=== PATIENT | female | born 1970 | race Two or more races ===

== ENCOUNTER → 2016-07-02 | Outpatient (CLI) | payer BC | END | disposition home or self-care (01) | LOC: LAB 13:56 | PROVIDERS: ATTEND Obstetrics & Gynecology | DX: N92.6 Irregular menstruation, unspecified (principal) | CPT/HCPCS: 86304 ==

== ENCOUNTER 2017-01-15 08:24 | Inpatient (IN) | payer BC ==
[~2017-01-15] VITALS: Ht 190.5 cm; Wt 129.5 kg
[2017-01-15] MEDS ORDERED: cloNIDine HCL 0.1 MG TAB PO ONE (09:15)
[2017-01-15 10:00] LABS: Basophils # (auto) 0.1 uL; Basophils % (auto) 0.9 % (0.0-2.0); Eosinophils # (auto) 0.1 uL; Eosinophils % (auto) 1.2 % (0.0-7.0); Hematocrit 31.1 % (36.0-46.0); Hemoglobin 9.4 g/dL (12.2-16.2); Lymphocytes # (auto) 2.9 uL; Lymphocytes % (auto) 35.2 % (10.0-50.0); Mean Corpuscular Hemoglobin 20.7 pg (28.0-32.0); Mean Corpuscular Hgb Conc. 30.4 g/dL (32.0-36.0); Mean Corpuscular Volume 68.2 fL (80.0-100.0); Mean Platelet Volume 8.6 fL (6.9-10.8); Monocytes # (auto) 0.7 uL; Monocytes % (auto) 7.8 % (0.0-12.0); Neutrophils # (auto) 4.6 uL; Neutrophils % (auto) 54.9 % (37.0-80.0); Nucleated Red Blood Cells % 0.1 %; Platelet Count (auto) 296 10^3/uL (140-450); White Blood Cell 8.4 10^3/uL (4.4-10.8)
[2017-01-15 10:05] LABS: Albumin 3.4 g/dL (3.4-5.0); BUN/Creatinine Ratio 12.2; Bilirubin, Total 0.5 mg/dL (0.2-1.0); Calcium 8.4 mg/dL (8.5-10.1); Magnesium 2.2 mg/dL (1.6-2.6); Potassium 3.9 mmol/L (3.5-5.1); Total Protein 7.7 g/dL (6.4-8.2)
[2017-01-15] MEDS ORDERED: LORazepam 0.5 MG TAB PO PRN (11:00)
[2017-01-15] MEDS ORDERED: PROMETHAZINE HCL 25 MG/ML 1ML IV PRN (11:00)
[2017-01-15] MEDS ORDERED: MORPHINE SULF INJ 2 MG/ML SYRINGE 1ML IV PRN ×2 (11:00)
[2017-01-15] MEDS ORDERED: ACETAMINOPHEN 500 MG TAB PO PRN (11:00)
[2017-01-15] MEDS ORDERED: ASPirin 81 mg TAB PO ONE (11:00)
[2017-01-15] MEDS ORDERED: HYDROcodone-ACET 5/325MG TAB PO PRN (11:00)
[2017-01-15] MEDS ORDERED: TEMAZEPAM 15 MG CAP PO PRN (11:00)
[2017-01-15] MEDS ORDERED: LACTULOSE 20Gm/30ML SOLN PO PRN (11:00)
[2017-01-15] MEDS ORDERED: NITROGLYCERIN 0.4 MG SL TAB SL PRN (11:00)
[2017-01-15] MEDS: ENALAPRIL MALEATE 10 MG TAB PO SCH (11:15)
[2017-01-15] MEDS: ENOXAPARIN SOD 40 MG/0.4 ML SYRINGE SC SCH (11:15)
[2017-01-15] MEDS: NITROGLYCERIN 0.2MG/HR TOPICAL PATCH TD SCH (11:30)
[2017-01-15] MEDS: METOPROLOL TARTRATE 25 MG TAB PO SCH ×2 (11:30→22:00)
[2017-01-15] MEDS: SODIUM CHLORIDE 0.9% 1,000 ML IV SCH (11:30)
[2017-01-15 11:31] LABS: INR 0.94 (0.9-1.15); Partial Thromboplastin Time 26.1 sec (22.64-33.71); Prothrombin Time 10.2 sec (9.37-12.3)
[2017-01-15 12:59] VITALS: BP 138/81
[2017-01-15 17:00] VITALS: BP 121/72
[2017-01-15] MEDS ORDERED: IOHEXOL 350 MG/ML 100ML IJ ONE (21:17)
[2017-01-15] MEDS: ATORVASTATIN 20 MG TAB PO SCH (22:00)
[2017-01-15 22:09] VITALS: BP 100/66
[2017-01-16] MEDS: SODIUM CHLORIDE 0.9% 1,000 ML IV SCH ×2 (00:12→13:28)
[2017-01-16 04:38] VITALS: BP 134/74
[2017-01-16 06:37] LABS: Eosinophils # (auto) 0.2 uL; Lymphocytes # (auto) 2.8 uL; Mean Corpuscular Hemoglobin 21.2 pg (28.0-32.0); Monocytes # (auto) 0.6 uL; Nucleated Red Blood Cells % 0.1 %; White Blood Cell 7.9 10^3/uL (4.4-10.8)
[2017-01-16 06:41] LABS: Basophils # (auto) 0 uL; Basophils % (auto) 0.5 % (0.0-2.0); Hematocrit 26.2 % (36.0-46.0); Hemoglobin 8.1 g/dL (12.2-16.2); Mean Corpuscular Volume 68.3 fL (80.0-100.0); Mean Platelet Volume 8.7 fL (6.9-10.8); Monocytes % (auto) 7.8 % (0.0-12.0); Neutrophils # (auto) 4.3 uL; Neutrophils % (auto) 54.7 % (37.0-80.0); Platelet Count (auto) 243 10^3/uL (140-450); Red Cell Distribution Width 18.4 % (11.8-14.3)
[2017-01-16 07:13] LABS: Cholesterol 163 mg/dL (< 200); HDL Cholesterol 45 mg/dL (40-59); LDL Cholesterol 106 mg/dL (< 100); Triglycerides 67 mg/dL (< 150)
[2017-01-16 08:00] VITALS: BP 122/77
[2017-01-16] MEDS: ENOXAPARIN SOD 40 MG/0.4 ML SYRINGE SC SCH ×2 (09:36→09:44)
[2017-01-16] MEDS: ENALAPRIL MALEATE 10 MG TAB PO SCH (09:37)
[2017-01-16] MEDS: ASPirin 81 mg TAB PO SCH (09:38)
[2017-01-16] MEDS: METOPROLOL TARTRATE 25 MG TAB PO SCH ×2 (09:38→22:26)
[2017-01-16] MEDS: NITROGLYCERIN 0.2MG/HR TOPICAL PATCH TD SCH ×2 (09:39→09:45)
[2017-01-16 12:00] VITALS: BP 123/85
[2017-01-16] MEDS: FERROUS SULFATE 325 MG TAB PO SCH ×2 (12:20→17:29)
[2017-01-16 16:51] VITALS: BP 156/92
[2017-01-16 22:00] VITALS: BP 136/77
[2017-01-16] MEDS: ATORVASTATIN 20 MG TAB PO SCH (22:25)
[2017-01-17] MEDS: SODIUM CHLORIDE 0.9% 1,000 ML IV SCH (02:52)
[2017-01-17 05:00] VITALS: BP 133/65
[2017-01-17 06:02] LABS: Basophils # (auto) 0.1 uL; Eosinophils # (auto) 0.2 uL; Lymphocytes # (auto) 2.8 uL; Mean Platelet Volume 8.6 fL (6.9-10.8); Neutrophils # (auto) 5.4 uL; Nucleated Red Blood Cells % 0.2 %; White Blood Cell 9.4 10^3/uL (4.4-10.8)
[2017-01-17 06:04] LABS: Eosinophils % (auto) 2.2 % (0.0-7.0); Hematocrit 27.2 % (36.0-46.0); Hemoglobin 8.5 g/dL (12.2-16.2); Lymphocytes % (auto) 29.3 % (10.0-50.0); Mean Corpuscular Hemoglobin 21.2 pg (28.0-32.0); Mean Corpuscular Hgb Conc. 31.1 g/dL (32.0-36.0); Mean Corpuscular Volume 68.1 fL (80.0-100.0); Monocytes % (auto) 10.5 % (0.0-12.0); Platelet Count (auto) 259 10^3/uL (140-450); Red Cell Distribution Width 17.5 % (11.8-14.3)
[2017-01-17 08:00] VITALS: BP 142/96
[2017-01-17] MEDS: FERROUS SULFATE 325 MG TAB PO SCH (08:15)
[2017-01-17] MEDS: ASPirin 81 mg TAB PO SCH (09:43)
[2017-01-17] MEDS: METOPROLOL TARTRATE 25 MG TAB PO SCH (09:44)
[2017-01-17 13:00] VITALS: BP 148/74
[2017-01-17 16:01] VITALS: BP 148/74
== END 2017-01-17 16:50 | disposition home or self-care (01) | DRG 313 ==
LOC: ER 08:24 → TELE 08:25 → TELE-E-ADS 12:37 → TELE-EAST 13:56
PROVIDERS: ADMIT Internal Medicine; ATTEND Internal Medicine
DX: R07.89 Other chest pain (principal); I10 Essential (primary) hypertension; R00.2 Palpitations; E66.9 Obesity, unspecified; D50.9 Iron deficiency anemia, unspecified; K59.00 Constipation, unspecified; F41.9 Anxiety disorder, unspecified; G47.00 Insomnia, unspecified; Z68.35 Body mass index [BMI] 35.0-35.9, adult; Z80.3 Family history of malignant neoplasm of breast; Z82.3 Family history of stroke; Z83.3 Family history of diabetes mellitus
CPT/HCPCS: 36415; 71275; 80053; 80061; 80307; 81025; 82550; 83540; 83550; 83735; 84443; 84484; 85025; 85379; 85610; 85652; 85730; 86141; 93005; 93306; 94761; 96374